=== PATIENT | male | born 1970 | race African-American/Black ===

== ENCOUNTER 2024-09-24 08:04 | Inpatient (IN) | payer OTHER ==
[~2024-09-24] VITALS: Ht 185.4 cm; Wt 143.0 kg
--- NOTE | 2024-09-24 08:21 | ED.PDOC ---
Altered Mental Status HPI Comments 54Y M with PMHx MS presents to ED via EMS for chief complaint overdose. Pt states that he is being f/u by pain management and takes Dilaudid, but pain has been worsening over the last 1.5months. Today, pt took [place] and did not feel relief. Pt then took Dilaudid and began to experience ALOC. Pt's called 911 . Upon EMS arrival to scene, pt was altered and going in and out of consciousness. Pt's initial SpO2 84-85% on RA. EMS administered oxygen supplementation and Narcan, which made the pt wake up and become conscious. Upon ED arrival, pt is awake, alert, and speaking in full sentences. Pt denies chest pain, SOB, and n/v/d. No other symptoms reported. Chief Complaint: Overdose Time Seen by MD: 08:09 Reviewed Notes: Nurses Notes, Director Of Nuclear Medicine Notes, Medications, Allergies Allergies: Coded Allergies: NO KNOWN ALLERGIES (Unverified , 09/24/24) Information Source: Patient, Emergency Med Personnel Mode of Arrival: EMS Brought in by: EMS Severity: Mild Timing: Minutes Duration: Since onset Prehospital treatment: Oxygen, Other (Narcan) Quality: Decreased Alertness Recent: Other History of: None Associated Signs and Symptoms: None Past Medical History Past Medical History (Other): MS Surgical History: Denies all surgeries Family History Family History: Unknown Social History Smoker: Non-Smoker Alcohol: Denies ETOH Use Drugs: Denies Drug Use Lives In: Home Constitutional: denies: chills, diaphoresis, fatigue, fever, malaise, sweats, weakness, others EENTM: denies: blurred vision, double vision, ear bleeding, ear discharge, ear drainage, ear pain, ear ringing, eye pain, eye redness, hearing loss, mouth pain, mouth swelling, nasal discharge, nose bleeding, nose congestion, nose pain, photophobia, tearing, throat pain, throat swelling, voice changes, others Respiratory: denies: cough, hemoptysis, orthopnea, SOB at rest, shortness of breath, SOB with excertion, stridor, wheezing, others Cardiovascular: denies: chest pain, dizzy spells, diaphoresis, Dyspnea on exertion, edema, irregular heart beat, left arm pain, lightheadedness, palpitations, PND, syncope, others Gastrointestinal: denies: abdomen distended, abdominal pain, blood streaked bowels, constipated, diarrhea, dysphagia, difficulty swallowing, hematemesis, melena, nausea, poor appetite, poor fluid intake, rectal bleeding, rectal pain, vomiting, others Genitourinary: denies: burning, dysuria, flank pain, frequency, hematuria, incontinence, penile discharge, penile sore, pain, testicle pain, testicle swelling, urgency, others Neurological: denies: dizziness, fainting, headache, left sided numbness, left sided weakness, numbness, paresthesia, pre-existing deficit, right sided numbness, right sided weakness, seizure, speech problems, tingling, tremors, weakness, others Musculoskeletal: denies: back pain, gout, joint pain, joint swelling, muscle pain, muscle stiffness, neck pain, others Integumetry: denies: bruises, change in color, change in hair/nails, dryness, laceration, lesions, lumps, rash, wounds, others Allergic/Immunocompromised: denies: Difficulty Healing, Frequent Infections, Hives, Itching, others Hematologic/Lymphatic: denies: anemia, blood clots, easy bleeding, easy bruising, swollen glands, others Endocrine: denies: excessive hunger, excessive sweating, excessive thirst, excessive urination, flushing, intolerance to cold, intolerance to heat, u nexplained weight gain, unexplained weight loss, others Psychiatric: denies: anxiety, bipolar disorder, depression, hopeless, panic disorder, schizophrenia, sleepless, suicidal, others All Other Systems: Reviewed and Negative Physical Exam General Appearance: No Apparent Distress, Normal HEENT: Normal ENT Inspection, Pharynx Normal, TMs Normal, Other (pupils 2+ bilaterally) Neck: Full Range of Motion, Non-Tender, Normal, Normal Inspection Respiratory: Chest Non-Tender, Lungs Clear, No Accessory Muscle Use, No Respiratory Distress, Normal Breath Sounds Cardiovascular: No Edema, No JVD, No Murmur, No Gallop, Normal Peripheral Pulses, Regular Rate/Rhythm Breast Exam: Deferred Gastrointestinal: No Organomegaly, Non Tender, No Pulsatile Mass, Normal Bowel Sounds, Soft Genitalia: Deferred Pelvic: Deferred Rectal: Deferred Extremities: No calf tenderness, Normal capillary refill, Normal inspection, Normal range of motion, Non-tender, No pedal edema Musculoskeletal : Apperance: Normal Neurologic: Alert, press operator II-XII nml as Tested, No Motor Deficits, Normal Affect, Normal Mood, No Sensory Deficits Cerebellar Function: Normal Reflexes: Normal Skin: Dry, Normal Color, Warm Lymphatic: No Adenopathy Was a procedure done? Was a procedure done?: No Differential Diagnosis (ALOC) Differential Diagnosis: Drug Overdose X-Ray, Labs, Meds, VS Vital Signs Date Time Temp Pulse Resp B/P (MAP) Pulse Ox O2 Delivery O2 Flow Rate FiO2 09/24/24 09:00 90 10 128/79 (95) 100 09/24/24 08:34 93 09/24/24 08:30 99.2 93 10 90/40 (57) 90 99.2 09/24/24 08:30 93 10 100 Nasal Cannula* 6 44 09/24/24 08:10 98.8 89 18 150/82 (104) 96 Lab Test 09/24/24 09:39 Range/Units White Blood Count 5.9 4.4-10.8 10^3/uL Red Blood Count 4.85 4.5-5.90 10^6/uL Hemoglobin 13.6 13.5-17.5 g/dL Hematocrit 40.3 L 41.0-53.0 % Mean Corpuscular Volume 83.1 80.0-100.0 fL Mean Corpuscular Hemoglobin 28.0 28.0-32.0 pg Mean Corpuscular Hemoglobin Concent 33.7 32.0-36.0 g/dL Red Cell Distribution Width 15.3 H 11.8-14.3 % Platelet Count 218 140-450 10^3/uL Mean Platelet Volume 7.7 6.9-10.8 fL Neutrophils (%) (Auto) 68.9 37.0-80.0 % Lymphocytes (%) (Auto) 22.5 10.0-50.0 % Monocytes (%) (Auto) 6.7 0.0-12.0 % Eosinophils (%) (Auto) 1.6 0.0-7.0 % Basophils (%) (Auto) 0.3 0.0-2.0 % Neutrophils # (Auto) 4.1 1.6-8.6 10 ^3/uL Lymphocytes # (Auto) 1.3 0.4-5.4 10 ^3/uL Monocytes # (Auto) 0.4 0-1.3 10 ^3/uL Eosinophils # (Auto) 0.1 0-0.8 10 ^3/uL Basophils # (Auto) 0 0-0.2 10 ^3/uL Nucleated Red Blood Cells 0.1 % Sodium Level 136 136-145 mmol/L Potassium Level 3.6 3.5-5.1 mmol/L Chloride Level 106 98-107 mmol/L Carbon Dioxide Level 26 20-31 mmol/L Anion Gap 4 L 5-15 Blood Urea Nitrogen 10 9-23 mg/dL Creatinine 1.64 H 0.700-1.30 mg/dL Glomerular Filtration Rate Calc 49 >90 mL/min BUN/Creatinine Ratio 6.1 L 10.0-20.0 Serum Glucose 107 H 74-106 mg/dL Calcium Level 8.8 8.7-10.4 mg/dL Current Medications Medications (Trade) Dose Ordered Sig/Saw Route Start Time Stop Time Status Last Admin Naloxone HCl (Narcan) 0.4 mg ONCE ONCE IV 09/24/24 08:45 09/24/24 08:46 DC 09/24/24 08:45 Naloxone HCl (Narcan) 2 mg ONCE ONCE IV 09/24/24 09:15 09/24/24 09:16 DC 09/24/24 09:12 Naloxone HCl (Narcan) 2 mg ONCE ONCE IV 09/24/24 09:30 09/24/24 09:31 DC 09/24/24 09:29 Time of 1ST Reevaluation: 08:39 Reevaluation 1ST: Unchanged Time of 2ND Reevaluation: 10:30 Reevaluation 2ND: Unchanged (despite of multiple doses of narcan, pt continues to relapse and became sleepy,. he will be on narcan drip and will need admission for further monitoring) Time of 3RD Reevaluation: 11:17 Reevaluation 3RD: Improved Patient Education/Counseling: Diagnosis, Treatment, Prognosis, Need For Follow Up Family Education/Counseling: No Family Present Additional Information I reviewed the following notes from patient's past medical encounters: None The following tests were ordered, and results were reviewed by me: None Additional Information was gathered from interviewing the following independent historians: EMS I reviewed and agreed with the following test results read by other providers: None I discussed treatment and results with medical personnel. due to pt's repeated need for narcan, a drip was started and pt will need to be admitted for further observation. due to his repeated relapses, we will have to carefully monitor him and titrate or rebolus narcan as needed. Dr Lemus, from [facility], was consulted and agrees to admit pt here. #[id number] Departure 1 Departure Time of Disposition: 10:38 Impression: Primary Impression: Narcotic overdose Qualified Codes: T40.601A - Poisoning by unspecified narcotics, accidental (unintentional), initial encounter Additional Impressions: Chronic pain Qualified Codes: G89.4 - Chronic pain syndrome Renal insufficiency Disposition: ADMITTED INPATIENT Admit to: Tele Condition: Serious Discharged With: Self Critical Care Note Critical Care Time?: Yes (55 min-critical care time only) Critical care comment: Due to concerns for patients condition deteriorating, the care required my highest level of attention and readiness to intervene. I assessed the patient, reviewed the medical records, ordered the appropriate tests and treatments, then reassessed for results and responsiveness. I communicated with medical personnel and consultants and formulated a plan of care. Total critical care time excludes any procedures Stability Stability form required: No Heart Score Heart Score: Heart Score Response (Comments) Value History N/A 0 EKG N/A 0 Age N/A 0 Risk Factors N/A 0 Troponin N/A 0 Total 0 I personally scribed for RUBY GÓMEZ MD ([email or web address]) on 09/24/24 at 08:21. Electronically submitted by Stephanie Taylor [email or web address]). I personally scribed for RUBY GÓMEZ MD ([email or web address]) on 09/24/24 at 08:22. Electronically submitted by Stephanie Taylor [email or web address]). RUBY GÓMEZ MD Sep 24, 2024 08:21
[2024-09-24 08:30] VITALS: PULSE 93; RESP 10; TEMP 99.2; O2SAT 100
[2024-09-24] MEDS: NALOXONE HCL 0.4 MG/ML VIAL IV ONE (08:45)
[2024-09-24] MEDS: NALOXONE HCL 1MG/ML 2ML SYRINGE IV ONE ×2 (09:12→09:29)
[2024-09-24 10:08] LABS: Chloride 106 mmol/L (98-107); Potassium 3.6 mmol/L (3.5-5.1); Sodium 136 mmol/L (136-145)
[2024-09-24 10:09] LABS: Anion Gap 4 (5-15); Calcium 8.8 mg/dL (8.7-10.4); Carbon Dioxide 26 mmol/L (20-31)
[2024-09-24 10:14] LABS: BUN/Creatinine Ratio 6.1 (10.0-20.0); Blood Urea Nitrogen 10 mg/dL (9-23)
[2024-09-24 10:18] LABS: Basophils # (auto) 0 10 ^3/uL (0-0.2); Basophils % (auto) 0.3 % (0.0-2.0); Eosinophils # (auto) 0.1 10 ^3/uL (0-0.8); Eosinophils % (auto) 1.6 % (0.0-7.0); Hematocrit 40.3 % (41.0-53.0); Hemoglobin 13.6 g/dL (13.5-17.5); Lymphocytes # (auto) 1.3 10 ^3/uL (0.4-5.4); Lymphocytes % (auto) 22.5 % (10.0-50.0); Mean Corpuscular Hgb Conc. 33.7 g/dL (32.0-36.0); Mean Corpuscular Volume 83.1 fL (80.0-100.0); Monocytes # (auto) 0.4 10 ^3/uL (0-1.3); Monocytes % (auto) 6.7 % (0.0-12.0); Neutrophils # (auto) 4.1 10 ^3/uL (1.6-8.6); Neutrophils % (auto) 68.9 % (37.0-80.0); Nucleated Red Blood Cells % 0.1 %; Platelet Count (auto) 218 10^3/uL (140-450); Red Blood Cells 4.85 10^6/uL (4.5-5.90); Red Cell Distribution Width 15.3 % (11.8-14.3); White Blood Cell 5.9 10^3/uL (4.4-10.8)
[2024-09-24 10:23] LABS: Glucose 107 mg/dL (74-106)
[2024-09-24] MEDS ORDERED: NALOXONE HCL 2 MG in D5W 5% 495 ML IV ONE (10:30)
--- NOTE | 2024-09-24 11:29 | DVHHP2 ---
History of Present Illness Reason for Visit: Overdose History of Present Illness 54-year-old male past medical history MS no surgical history chief complaint patient was was sent to the ER for concern for overdose. 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 And then he was provided Narcan also in the ER and despite this he continued to be sedated so Narcan drip was placed currently CBC was unremarkable creatinine was slightly elevated at 1.64 glucose was with mild elevation CT scan of the brain shows no acute findings old changes otherwise CBC and CMP was unremarkable. With these findings we will admit to deal you for further workup and care and continue Narcan drip toe patient improves mental status Past Medical History MS Past Surgical History Denies surgical history Family History Unable to assess due to current mental status Past Social History Unable to assess due to current mental status Review of Systems Review of Systems Unable to assess due to current mental status Allergies: Coded Allergies: NO KNOWN ALLERGIES (Unverified , 09/24/24) Exam Vital Signs Vital Signs Date Time Temp Pulse Resp B/P (MAP) Pulse Ox O2 Delivery O2 Flow Rate FiO2 09/24/24 09:00 90 10 128/79 (95) 100 09/24/24 08:30 99.2 99.2 09/24/24 08:30 Nasal Cannula* 6 44 Exam sedated but slight arousable General Appearance: Alert, Oriented X3, Cooperative HEENT: Atraumatic, PERRLA, EOMI, Mucous membr. moist/pink Respiratory: Clear to auscultation, Normal air movement Cardiovascular: Regular rate, Normal S1, Normal S2, No murmurs Abdominal: Normal bowel sounds, Soft, No tenderness, No hepatospenomegaly, No masses Extremities: No clubbing Skin: No rashes, No breakdown, No significant lesion Neuro: Strength at 5/5 X4 ext, Normal tone, Sensation intact, Cranial nerves 3- 12 NL Labs/Xrays CT scan of the brain shows ischemic changes with no acute findings I reviewed labs, imaging CT scan abdomen pelvis, EKG and all diagnostic studies on this patient from ED records and the medical chart Labs Test 09/24/24 09:39 Range/Units White Blood Count 5.9 4.4-10.8 10^3/uL Red Blood Count 4.85 4.5-5.90 10^6/uL Hemoglobin 13.6 13.5-17.5 g/dL Hematocrit 40.3 L 41.0-53.0 % Mean Corpuscular Volume 83.1 80.0-100.0 fL Mean Corpuscular Hemoglobin 28.0 28.0-32.0 pg Mean Corpuscular Hemoglobin Concent 33.7 32.0-36.0 g/dL Red Cell Distribution Width 15.3 H 11.8-14.3 % Platelet Count 218 140-450 10^3/uL Mean Platelet Volume 7.7 6.9-10.8 fL Neutrophils (%) (Auto) 68.9 37.0-80.0 % Lymphocytes (%) (Auto) 22.5 10.0-50.0 % Monocytes (%) (Auto) 6.7 0.0-12.0 % Eosinophils (%) (Auto) 1.6 0.0-7.0 % Basophils (%) (Auto) 0.3 0.0-2.0 % Neutrophils # (Auto) 4.1 1.6-8.6 10 ^3/uL Lymphocytes # (Auto) 1.3 0.4-5.4 10 ^3/uL Monocytes # (Auto) 0.4 0-1.3 10 ^3/uL Eosinophils # (Auto) 0.1 0-0.8 10 ^3/uL Basophils # (Auto) 0 0-0.2 10 ^3/uL Nucleated Red Blood Cells 0.1 % Sodium Level 136 136-145 mmol/L Potassium Level 3.6 3.5-5.1 mmol/L Chloride Level 106 98-107 mmol/L Carbon Dioxide Level 26 20-31 mmol/L Anion Gap 4 L 5-15 Blood Urea Nitrogen 10 9-23 mg/dL Creatinine 1.64 H 0.700-1.30 mg/dL Glomerular Filtration Rate Calc 49 >90 mL/min BUN/Creatinine Ratio 6.1 L 10.0-20.0 Serum Glucose 107 H 74-106 mg/dL Calcium Level 8.8 8.7-10.4 mg/dL Assessment/Plan Assessment/Plan acute metabolic encephalopathy likely related to narcotic OD ct scan normal old changes monitor for resp distress pt was provided narcan iv no improvement ordered narcan drip for now cont to monitor for resp distress acute hypoxic resp failure likely from narcs od pt had taken diluadid and norco for prior to arrival pt was provided narcan ordered ivf for now 02 to keep sats >92% will placed on tele for now acute drug narcan overdose pt does seen pain management will need to reconsider use of drugs will hold all narcs for now acute [place] ordered urine sodium and crea to check fena ordered ivf for now chronic ms will hold pain medication for now fen/ppx diet when more alert ivf for now scd lovenox for now no gi ppx since no hx of gerds or gi bleed plan admit to [facility] since no narcan drip for recovery Plan discussed with: Patient, Other (nursing ) Date of Service: Sep 24, 2024 Billing Provider: PADMAJA LOBO DNP Common Visit Codes: 68785-[id number] INP/OBS CARE (HIGH), 66785-[id number] CARE 30- 74 MIN (Total critical care time: Approximately 45 minutes This critical care time included obtaining a history; examining the patient; pulse oximetry; ordering and review of studies; arranging urgent treatment with development of a management plan; evaluation of patient's response to treatment; frequent reassessment; and, discussions with other providers.) PADMAJA LOBO DNP Sep 24, 2024 11:29
[2024-09-24] MEDS: NALOXONE HCL 2 MG in SODIUM CHL 0.9% 495 ML IV ONE (11:49)
--- NOTE | 2024-09-24 12:53 | DVH ---
EXAM: CT HEAD WITHOUT CONTRAST HISTORY: ALOC COMPARISON: None TECHNIQUE: Axial images of the head were obtained and reformatted in coronal and sagittal planes. All CT scans at this medical facility are performed using dose modulation techniques as appropriate t o a performed exam including the following: Automated exposure control was utilized; adjustment of th e MA and/or KV according to patient size; and use of iterative reconstruction technique. CT Dose: CTDI volume is 68.04 mGy. Dose-length product is 1340.61 mGy*cm FINDINGS: There is no evidence of acute intracranial hemorrhage, mass, mass effect midline shift. There is no h ydrocephalus or extra-axial fluid collection. There are patchy hypodense changes in the supratentoria l white matter May relate to chronic microvascular ischemic changes. Rios-white matter differentiatio n is maintained. There is complete opacification of the left maxillary sinus. Remaining visualized paranasal sinuses a nd mastoid air cells are clear. The calvarium is intact. IMPRESSION: 1. No acute intracranial process. 2. Patchy hypodense changes in the supratentorial white matter May relate to chronic microvascular is chemic changes. HS:Y
[2024-09-24] MEDS: SODIUM CHLORIDE 0.9% 1,000 ML IV SCH (13:15)
[2024-09-24] MEDS ORDERED: ONDANSETRON HCL 4 MG/2 ML VIAL IV PRN (13:15)
[2024-09-24] MEDS ORDERED: DOCUSATE SOD 100 MG CAP PO PRN (13:15)
[2024-09-24] MEDS ORDERED: NITROGLYCERIN 0.4 MG SL TAB SL PRN (13:15)
[2024-09-24 15:36] LABS: Creatinine, Urine 183.53 mg/dL (30.0-125.0)
[2024-09-24 15:37] LABS: Amphetamine Screen, Urine Neg (NEGATIVE)
[2024-09-24 15:38] LABS: Barbiturate Scree,Urine Neg (NEGATIVE); Benzodiazephine Screen, Urine Neg (NEGATIVE); Cannabinoid Screen, Urine Neg (NEGATIVE); Cocaine Screen, Urine Neg (NEGATIVE); Opiate Scree,Urine Pos (NEGATIVE); Phencyclidine Screen, Urine Neg (NEGATIVE)
[2024-09-24 17:00] VITALS: BP 143/86; PULSE 91; RESP 18; O2SAT 94
--- NOTE | 2024-09-25 07:41 | ECG ---
[facility] Test Date: 2024-09-24 Test Time: 08:34:47 Pat Name: NICOLÁS HOBBS Department: Emergency Room: [address] [place] [id number] Gender: M Post Graduate Intern: Cabrera : 1970 Requested By: RUBY GÓMEZ Order Number: [id number] Reading MD: Willis Cameron Measurements Intervals [place] Rate: 93 P: -2 DC: 191 QRS: 3 QRSD: 86 T: 30 QT: 373 QTc: 464 Interpretive Statements Sinus rhythm Abnormal R-wave progression, late transition Electronically Signed On 09-25-2024 13:10:04 PST by Willis Cameron Please click the below link to view image of tracing.
[2024-09-25] MEDS ORDERED: ENOXAPARIN SOD 40 MG/0.4 ML SYRINGE SC SCH (10:00)
== END 2024-09-24 17:26 | disposition left against medical advice (07) | DRG 917 ==
LOC: EDBD 08:04 → ER 08:04 → TELE 13:01
PROVIDERS: ADMIT Nurse Practitioner Family; ATTEND Nurse Practitioner Family
DX: T40.601A Poisoning by unspecified narcotics, accidental (unintentional), initial encounter (principal); G93.41 Metabolic encephalopathy; J96.01 Acute respiratory failure with hypoxia; N17.9 Acute kidney failure, unspecified; G35 Multiple sclerosis; Z53.29 Procedure and treatment not carried out because of patient's decision for other reasons; Y92.89 Other specified places as the place of occurrence of the external cause
CPT/HCPCS: 36415; 70450; 80048; 80307; 82570; 84300; 85025; 93005; 99291; G0378